=== PATIENT | male | born 1970 | race Hispanic/Latino ===

== ENCOUNTER 2021-01-09 19:34 | Emergency (ER) | payer SELFPAY ==
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
[2021-01-09] MEDS ORDERED: ACETAMINOPHEN W/COD #3 TAB 1 EA TAB PO ONE (20:05)
[2021-01-09 20:10] VITALS: TEMP 98.2
--- NOTE | 2021-01-09 20:51 | RAD ---
EXAM DESCRIPTION: Tibia/Fibula,Left (accession [id number]), Ankle,Left 3 Views (accession [id number]) CLINICAL HISTORY: left lower leg injury 5 days ago COMPARISON: None FINDINGS: Three x-ray views of the left ankle and two x-ray views of the left tibia and fibula were submitted. There is an acute oblique mildly displaced fracture of the proximal fibular diaphysis. There is widening of the ankle mortise. There is an enthesophyte at plantar aspect of the calcaneus at insertion of Achilles tendon. Bone mineralization is within normal limits. There is no radiopaque foreign body material. IMPRESSION: Acute oblique mildly displaced fracture of the proximal fibular diaphysis. Widening of the ankle mortise compatible with ligamentous injury. Electronically signed by: Javier Angulo MD 01/09/2021 8:50 PM [facility]
--- NOTE | 2021-01-09 20:52 | RAD ---
EXAM DESCRIPTION: Tibia/Fibula,Left (accession [id number]), Ankle,Left 3 Views (accession [id number]) CLINICAL HISTORY: left lower leg injury 5 days ago COMPARISON: None FINDINGS: Three x-ray views of the left ankle and two x-ray views of the left tibia and fibula were submitted. There is an acute oblique mildly displaced fracture of the proximal fibular diaphysis. There is widening of the ankle mortise. There is an enthesophyte at plantar aspect of the calcaneus at insertion of Achilles tendon. Bone mineralization is within normal limits. There is no radiopaque foreign body material. IMPRESSION: Acute oblique mildly displaced fracture of the proximal fibular diaphysis. Widening of the ankle mortise compatible with ligamentous injury. Electronically signed by: Javier Angulo MD 01/09/2021 8:50 PM [facility]
[2021-01-09] MEDS ORDERED: ONDANSETRON INJ 4 MG/2 ML VIAL IM ONE (21:03)
[2021-01-09] MEDS ORDERED: MORPHINE SULFATE INJ 10 MG/ML VIAL ONE ×2 (21:03→21:07)
[2021-01-09] MEDS ORDERED: MORPHINE SULFATE INJ 10 MG/ML VIAL IM ONE (21:03)
[2021-01-09] MEDS ORDERED: ONDANSETRON INJ 4 MG/2 ML VIAL ONE (21:03)
[2021-01-09] MEDS ORDERED: ACETAMINOPHEN W/COD #3 TAB (ER Disp) PO ONE (21:06)
[2021-01-09 22:10] VITALS: O2SAT 99
[2021-01-09 22:11] VITALS: BP 135/74
== END 2021-01-09 20:50 | disposition home or self-care (01) ==
LOC: ER 19:34
DX: S82.832A Other fracture of upper and lower end of left fibula, initial encounter for closed fracture (principal); W00.0XXA Fall on same level due to ice and snow, initial encounter; Y99.0 Civilian activity done for income or pay; Y92.9 Unspecified place or not applicable
CPT/HCPCS: 73590; 73610; J2270; J2405